=== PATIENT | female | born 2000 | race Caucasian/White ===

== ENCOUNTER 2019-04-26 15:08 | Inpatient (IN) ==
[2019-04-26] MEDS: NS 1,000 ML IV SCH (16:59)
[2019-04-26] MEDS: ZOFRAN IV PRN (16:59)
[2019-04-26 17:20] LABS: URINE SOURCE CLEAN CATCH
[2019-04-26 17:31] LABS: BILIRUBIN URINE NEGATIVE (NEGATIVE); BLOOD URINE TRACE (NEGATIVE); COLOR YELLOW; GLUCOSE URINE NEGATIVE (NEGATIVE); KETONE URINE >150 mg/dL (NEGATIVE); LEUKOCYTES URINE NEGATIVE (NEGATIVE); NITRITE URINE NEGATIVE (NEGATIVE); PH URINE 5.5; PROTEIN URINE 30 mg/dL (NEGATIVE); SP GRAVITY URINE 1.022; TURBIDITY URINE CLEAR (CLEAR); UROBILINOGEN URINE NORMAL (NORMAL)
[2019-04-26 17:32] LABS: UR EPITHELIAL CELLS >10 /HPF (<10); URINE BACTERIA 2+ /HPF; URINE RBC <10 /HPF (<10); URINE WBC <10 /HPF (<10)
[2019-04-26] MEDS ORDERED: SODIUM CHLORIDE 0.9% INJ SCH (19:15)
--- NOTE | 2019-04-26 20:05 | GASTROENTEROLOGY CONSULTATION ---
DATE: 04/26/2019 CONSULTING PHYSICIAN: Dr. Griffith. REASON FOR CONSULTATION: Nausea, vomiting, diarrhea, weight loss. HISTORY: This is a 18-year-old white female with no history of major medical problem. She was admitted to the hospital after she had episodes of nausea and vomiting with loose stool. She tells me that she has been having episodes of these for some time now. For the past few weeks, it has become worse. She has not been able to keep anything down for the past 4 days. She denies any associated fever or chills. Has not had any hematemesis or coffee-ground emesis, but every time she eats, she ends up vomiting. Even drinking water, she ends up vomiting. She has not had any melena or bright red blood per rectum, but she has had multiple loose stools. She has at least 2 to 3 loose stools every day and has not seen any blood or mucus in her stool. She complains of occasional abdominal pain. She points toward the mid of the abdomen. It is usually sharp, but sometimes cramp-like, and is not associated with her nausea, vomiting, or diarrhea. She tells me her appetite is poor, although she is trying to eat well, but she has lost a significant amount of weight. She denies any dysuria, polyuria, or hematuria. Has not had any cough, sputum, or hemoptysis. PAST MEDICAL HISTORY: Nothing significant. SURGERIES: None. MEDICATIONS: Prior to hospitalization, she was on amoxicillin and Phenergan. ALLERGIES: No known drug allergies. SOCIAL HISTORY: She is a single. Has a boyfriend. She smokes and drinks occasionally. Does not use illicit drugs. However, she tells me she does smoke marijuana off and on. PHYSICAL EXAMINATION: General: A very pleasant white female. She is thin built, lying in bed. She is conscious, alert, appears to be in no distress. Vital Signs: Temperature 98.6 degrees, pulse 80, breathing rate of 14, blood pressure 101/49, and she weighs 92 pounds. She is 5 feet 2 inches tall. Head: Atraumatic and normocephalic. Eyes: Conjunctivae are normal. Sclerae are anicteric. ENT: Nares are patent. No discharge. Mouth mucosa is moist. Throat is normal. Neck: Supple. No lymphadenopathy or thyromegaly. Chest: Bilaterally symmetrical. It is moving with respirations. Breath sounds audible bilaterally. No rhonchi or crepitations could be heard. Heart: Regular. No murmur. Abdomen: Flat, soft, nontender. I could not appreciate masses or megaly. No ascites noted. Bowel sounds are audible. Extremities: No pedal edema, cyanosis, or clubbing were noted. BRIM CURLER: Grossly intact. No sensory or motor deficit. LABS: Only urinalysis available which is essentially negative. IMPRESSION: This is a 18-year-old white female who has presented with cyclical vomiting and diarrhea, and has lost weight. With the history of marijuana, she has a question of possible cyclical vomiting secondary to cannabinoids; however, other etiology needs to be ruled out. She will have serology for celiac disease, and we will also check irritable bowel disease panel. She may need esophagogastroduodenoscopy and biopsy and possible colonoscopy, depending on the findings from now on. In the meantime, I will start her on proton pump inhibitor and symptomatic treatment for nausea, hydrate, recheck her labs, maintain her electrolytes, recheck her labs, and will follow. I have discussed the case with the family members present at the bedside, also with Dr. Griffith. cc: MD Dandy Guerin MD
[2019-04-26 20:33] LABS: UR AMPHETAMINES QUAL NONE DETECTED (NONE DETECT); UR BARBITUATES QUAL NONE DETECTED (NONE DETECT); UR BENZODIAZEPIN QUAL NONE DETECTED (NONE DETECT); UR CANNABINOIDS QUAL PRESUMPTIVE POSITIVE (NONE DETECT); UR COCAINE QUAL PRESUMPTIVE POSITIVE (NONE DETECT); UR METHADONE QUAL NONE DETECTED (NONE DETECT); UR OPIATES QUAL NONE DETECTED (NONE DETECT); UR OXYCODONE QUAL NONE DETECTED (NONE DETECT); UR PCP QUAL NONE DETECTED (NONE DETECT)
--- NOTE | 2019-04-26 20:47 | HISTORY AND PHYSICAL ---
CHIEF COMPLAINT: Intractable nausea, vomiting, diarrhea, weight loss for the last 1 month. HISTORY OF PRESENT ILLNESS: She is a 18-year-old white female who was seen in my office 04/21/2019 as a new patient, and she has above symptoms. She had a baseline workup that was negative. test was negative, waiting for the further workup. In the meantime, she was seen in the [facility] with intractable nausea and vomiting. Patient was sent home on Phenergan and amoxicillin. Urine dipstick showed positive ketones. She is not holding anything down. Came to the office as a followup and basically admitted to the hospital for impending dehydration with intractable nausea, vomiting, and diarrhea. PAST MEDICAL HISTORY: None. PAST SURGICAL HISTORY: Cholecystectomy. MEDICATIONS: None. Recently prescribed Phenergan and amoxicillin. ALLERGIES: Not known. SOCIAL HISTORY: Single, living in [place], unemployed. She denies any smoking, drugs, alcohol abuse. As per Dr. Jackman, the patient was using marijuana. FAMILY HISTORY: Both parents are healthy. Mother had gastric carcinoid detected by Dr. Miguel. REVIEW OF SYSTEMS: HEENT: No headache. No vision problem. No earache. No sore throat. Neck: No neck pain. No rigidity. Cardiopulmonary: No chest pain, shortness of breath, PND, orthopnea. Gastrointestinal: Intractable nausea, abdominal pain, diarrhea, weight loss. No blood in the stool. Integument: No skin rashes. No joint pain. Neurologic: No focal symptoms or weakness. PHYSICAL EXAMINATION: VITAL SIGNS: Temperature is 97 degrees, pulse is 80, blood pressure is stable 5 feet 2, 92 pounds. HEENT: Atraumatic, normocephalic. Pupils equal, reactive to light. TMs are normal and dry mucous membranes. NECK: Supple. No lymphadenopathy. CHEST: Bilateral air entry. HEART: Sounds are regular. ABDOMEN: Belly is soft, scaphoid, nontender. No signs of peritonitis. EXTREMITIES: No peripheral edema or cyanosis. No obvious neurological deficits. INVESTIGATIONS: Urine is positive for ketones. She has blood workup done yesterday. White cell count 9.6, hematocrit 39, platelets 233,000. SMA7: Sodium 137, potassium 3.7, chloride 98, BUN 14, creatinine 0.5, glucose 82, calcium 9.1, total bilirubin 1.4. Amylase and lipase were normal. Urinalysis: Positive for ketones. Urine tox screen before was positive for marijuana and plasma alcohol 29. ASSESSMENT AND PLAN: 1. A 18-year-old white female admitted to the hospital with nausea, vomiting, diarrhea, weight loss, history of cholecystectomy impending dehydration. Plan is IV fluids, IV Pepcid, Zofran. 2. Possible urinary tract infection. Follow up on urine for culture and sensitivity. 3. History of marijuana abuse that can cause cyclical vomiting. We will do the counseling. 4. GI consult with Dr. Jackman. 5. Follow up on Celiac disease panel, IBD panel and stool cultures and based on that further recommendations will be followed. Appreciated GI consult. cc: Dandy Griffith MD
[2019-04-26] MEDS: PEPCID IV SCH (21:26)
[2019-04-27] MEDS: NS 1,000 ML IV SCH ×2 (06:10→16:25)
[2019-04-27 07:34] LABS: AGAP 10; ALB/GLOB RATIO 1.8; ALBUMIN 3.7 g/dL (3.5-5.0); ALKALINE PHOSPHATASE 62 U/L (32-104); BUN 7 mg/dL (8-22); CALCIUM 8.1 mg/dL (8.8-10.2); CHLORIDE 109 mmol/L (98-107); COSMO 270; CREATININE 0.6 mg/dL (0.5-0.9); ESTIMATED GFR > 60; GLUCOSE 62 mg/dL (70-104); GOT 13 U/L (10-30); GPT 6 U/L (10-36); POTASSIUM 3.4 mmol/L (3.5-5.1); SODIUM 137 mmol/L (136-145); TCO2 18 mmol/L (25-35); TOTAL BILIRUBIN 1.11 mg/dL (0.20-1.00); TOTAL PROTEIN 5.8 g/dL (6.3-8.3)
[2019-04-27] MEDS: PEPCID IV SCH ×2 (08:53→21:42)
--- NOTE | 2019-04-27 14:47 | GASTROENTEROLOGY PROGRESS NOTE ---
DATE: 04/27/2019 SUBJECTIVE: At the time of my evaluation this morning the patient was still complaining of nausea. She has had less vomiting. She has not had diarrhea since admission, so stool studies have not been collected. She has had celiac lab drawn, but results not available yet. OBJECTIVE: Vital Signs: Temperature 98.5, pulse 66, respirations 18, blood pressure 105/61. General: Patient is awake, in no acute distress. She has family at the bedside. LABORATORY: Chemistry: Sodium 137, potassium 3.4, chloride 109, CO2 18, BUN 7, creatinine 0.6, total bilirubin 1.11, AST 13, ALT 6, alkaline phosphatase 62. ASSESSMENT AND PLAN: 1. Nausea and vomiting. 2. Diarrhea. 3. History of marijuana and cocaine use, possibly the reason for her GI complaints. 4. Will plan to proceed with an EGD tomorrow. Further plans will be made according to findings. I have discussed the EGD procedure with the patient, along with benefits and risks and she wishes to proceed. Further plans will be made as needed. I have discussed this case with Dr. Jackman. Dictated by LON Spangler for Rick Jackman MD cc: LON Blanco MD Jagan Reddy, MD
[2019-04-27] MEDS: ZOFRAN IV PRN (18:16)
--- NOTE | 2019-04-27 19:47 | PROGRESS NOTE ---
DATE: 04/27/2019 SUBJECTIVE: The patient is still nauseous, vomiting. Unfortunately, urine toxic positive for cocaine and marijuana. PHYSICAL EXAMINATION: Temperature is 98.8 degrees, pulse 60, blood pressure is 110/63.HEENT: Within normal limits. Neck: Supple. Chest: Clear. Heart: Sounds are regular. Abdomen: Belly is soft, nontender. Neurologic: No obvious deficits. INVESTIGATIONS: SMA 7 potassium 3.4. Urine toxic positive. ASSESSMENT AND PLAN: 1. Nausea and vomiting probably due to chronic cannabis syndrome and esophagogastroduodenoscopy. We will follow up. 2. Substance abuse. Promotion Writer consult. 3. Hypokalemia. Replace the potassium. Follow up on the pending labs. I appreciate Dr. Reinoso's consult. LEVEL OF DOCUMENTATION: 25 minutes. cc: Dandy Griffith MD
[2019-04-27] MEDS: POTASSIUM CHLORIDE 20 MEQ/SWI 20 MEQ/100 ML IVPB IV SCH (21:41)
[2019-04-28] MEDS: POTASSIUM CHLORIDE 20 MEQ/SWI 20 MEQ/100 ML IVPB IV SCH (02:57)
[2019-04-28] MEDS: NS 1,000 ML IV SCH ×2 (06:24→18:58)
[2019-04-28] MEDS: PEPCID IV SCH (06:25)
[2019-04-28] MEDS ORDERED: DIPRIVAN 1% ONE ×2 (12:22→13:04)
[2019-04-28] MEDS ORDERED: MYLICON DROPS ONE (13:09)
[2019-04-28] MEDS: ZOFRAN IV PRN (13:39)
--- NOTE | 2019-04-28 22:21 | PROGRESS NOTE ---
DATE: 04/28/2019 SUBJECTIVE: The patient is still nauseous and not eating. OBJECTIVE: Vital signs: Temperature is 97 degrees, pulse 93. Vitals are stable. HEENT Exam: Within normal limits. Neck: Supple. Chest: Clear. Cardiovascular: Heart sounds are regular. Abdomen: Belly is soft and nontender. INVESTIGATIONS: None reported. ASSESSMENT AND PLAN: 1. Nausea, vomiting, weight loss. Waiting for EGD. 2. Substance abuse with cocaine and marijuana. Discussed with the social science research assistant about chronic cannabis syndrome and will address the issue as an outpatient for detox. Continue IV fluids and replace the potassium. Follow up on EGD findings and hopefully will discharge tomorrow LEVEL OF DOCUMENTATION: 25 minutes. cc: Dandy Griffith MD
[2019-04-29] MEDS: ZOFRAN IV PRN (04:05)
[2019-04-29 04:38] VITALS: BP 114/67
[2019-04-29] MEDS ORDERED: PRILOSEC PO SCH (07:00)
--- NOTE | 2019-04-29 11:44 | ENDOSCOPY OPERATIVE NOTE ---
[facility] ENDOSCOPY OPERATIVE NOTE , PATIENT: Milagro Torres ADMISSION DATE: MR#: [id number] : 2000 ACCT #: EGD PROCEDURE REPORT PROCEDURE DATE: 04/28/2019 SURGEON: Rick Jackman MD STATUS: outpatient JIGGER ARTISAN: Daisy Moseley and Sofie Driscoll PREOPERATIVE DIAGNOSIS: The patient is a 18 yr old female here for an EGD due to dyspepsia, nausea, vomiting, and weight loss. PROCEDURE PERFORMED: EGD w/ biopsy MEDICATIONS: Per Anesthesia TOPICAL ANESTHETIC: CONSENT: The patient understands the risks and benefits of the procedure and understands that these r isks include, but are not limited to: sedation, allergic reaction, infection, perforation and/or bleeding. Alternative means of evaluation and treatment include, among others: physical exam, x-rays, and/or surgical intervention. The patient elects to proceed with this endoscopic procedure. HISORY AND PHYSICAL: 04/28/2019 function. Hand hygiene and appropriate measures for infection prevention was taken. After the risks, benefits and alternatives of the procedure were thoroughly explained, Informed consent was verified, confirmed and timeout was successfully executed by the treatment team. The patient was anesthetized with topical anesthesia and the [id number] ([id number]) endoscope was introduced through the mouth and advanced to the second portion of the duoden um. Retroflexion was performed in the stomach and revealed no abnormalities. The gastroscope was then slowly withdraw n and removed. ESOPHAGUS: The mucosa of the esophagus appeared normal. STOMACH: Mild and congested gastritis (inflammation) was found in the gastric body. Multiple biopsie s were performed using cold forceps. Tissue samples were placed in jar A. Sample sent for histology. There was no evidence of Ulcer, tumors or masses. DUODENUM: The duodenal mucosa showed no abnormalities. SPECIMENS REMOVED: No ADVERSE EVENTS: There were no complications. POSTOPERATIVE DIAGNOSIS: 1. The mucosa of the esophagus appeared normal 2. Gastritis (inflammation) was found in the gastric body; multiple biopsies were performed 3. The duodenal mucosa showed no abnormalities RECOMMENDATIONS: 1. You will be notified of biopsy results within two weeks. If not, please isabel l the office for results. 2. Resume regular diet 3. Avoid non-steroid anti-inflammatory drugs 4. Resume current medications 5. Follow up with referring physician 6. Follow-up with Dr. Jackman in 6 week(s) REPEAT EXAM: Rick Jackman MD eSigned: Rick Jackman MD 04/28/2019 1:12 PM cc: Lizbeth Griffith MD PATIENT NAME: Milagro Torres MR#: [id number]
[2019-04-29 22:28] LABS: TISSUE TRANSGLUTAMINASE IGA SEE COMMENTS
--- NOTE | 2019-04-30 19:53 | DISCHARGE SUMMARY ---
ADMISSION DATE: 04/26/2019 DISCHARGE DATE: 04/29/2019 DISCHARGING DIAGNOSES: Persistent nausea, vomiting, and weight loss due to chronic cannabis syndrome. SECONDARY DIAGNOSES: 1. Hypokalemia due to dehydration. 2. Substance abuse problem. Consulted Transport Coordinator. 3. History of cholecystectomy. CONSULTATIONS: Dr. Jackman. PROCEDURES: EGD completely negative. Biopsy was done. BRIEF HISTORY: Please see the H and P that was done on 04/26. In brief, she is a 18-year-old white female who recently came to our practice with persistent nausea, vomiting, and abdominal cramps. The patient was profoundly dehydrated with ketones in the urine. She is losing weight. Obviously, she was seen a day before in the ER. test was negative. EGD was obtained. It did not show any evidence of active pathology. Gallbladder was taken out. Further workup ruled out for celiac disease. Urine toxic was positive for cocaine and marijuana. It appears to be marijuana is causing cyclical vomiting and weight loss. Transport Coordinator consult was obtained for detox program. The patient was discharged home in a stable condition. SMA-7: Sodium 137, potassium 3.4, chloride 108, BUN 7, creatinine 0.6, glucose 62. Celiac panel: IgA is normal. Tissue transglutaminase IgA is negative. IBD panel was pending. DISCHARGING INSTRUCTIONS: 1. Zofran for p.r.n. nausea. 2. Substance abuse detox as an outpatient as described. 3. Follow up in my office in 2 weeks. cc: Dandy Griffith MD
== END 2019-04-29 10:54 | disposition home or self-care (01) | DRG 897 ==
LOC: DIRADM → OBSVTOIN 15:08 → 3N 15:28
PROVIDERS: ADMIT Internal Medicine; ATTEND Internal Medicine
CPT/HCPCS: 80048; 80053; 80101; 80301; 80307; 80324; 80345; 80346; 80353; 80358; 80361; 80365; 81001; 82784; 83516; 83992; 87088; 88305; 88312; 96374; 96375; 96376; A9270; G0378; G0379; G0431; G0434; G0479; G0480; J2405; J3480; J7030; S0028